=== PATIENT | male | born 1995 | race Caucasian/White ===

== ENCOUNTER → 2019-03-27 12:52 | Outpatient (CLI) | payer OTHER, SELFPAY ==
--- NOTE | 2019-03-27 12:55 | DI.RAD.S_ITS ---
PROCEDURE: XR ANKLE LT MIN 3V INDICATIONS: rolled ankle, pain to lateral aspect, r/o fx TECHNIQUE: 3 views of the ankle were acquired. COMPARISON: [facility], , XR FOOT LT MIN 3V, 03/27/2019, 13:08. FINDINGS: Bones: No fractures or dislocations. Ankle mortise is normally aligned. No suspicious bony lesions. Soft tissues: Small tibiotalar joint effusion. Achilles tendon appears normal. Soft tissue swelling over lateral malleolus. IMPRESSION: 1. No fracture or dislocation. 2. Soft tissue swelling over the lateral malleolus. 3. Small tibiotalar joint effusion. Dictated by: Piedad Cano M.D. on 03/27/2019 at 14:36 Approved by: Piedad Cano M.D. on 03/27/2019 at 14:38
--- NOTE | 2019-03-27 12:55 | DI.RAD.S_ITS ---
PROCEDURE: XR FOOT LT MIN 3V INDICATIONS: r/o fx TECHNIQUE: 3 views of the foot were acquired. COMPARISON: [facility], CR, XR ANKLE LT MIN 3V, 03/27/2019, 13:08. FINDINGS: Bones: No fractures or dislocations. No suspicious bony lesions. Bipartite medial sesamoid. Soft tissues: Small tibiotalar joint effusion. Achilles tendon appears normal. Soft tissue swelling. IMPRESSION: No fracture or dislocation. If clinical symptoms persist or clinical suspicion for pathology is high, a repeat examination in 7-10 days, or advanced imaging such as CT or MRI is suggested for further evaluation. Dictated by: Piedad Cano M.D. on 03/27/2019 at 14:38 Approved by: Piedad Cano M.D. on 03/27/2019 at 14:41
== END ==
PROVIDERS: Visit Provider Physician Assistant
DX: S99.912A Unspecified injury of left ankle, initial encounter (principal); M25.472 Effusion, left ankle; M79.89 Other specified soft tissue disorders; X58.XXXA Exposure to other specified factors, initial encounter
CPT/HCPCS: 73610; 73630